=== PATIENT | female | born 1990 | race American Indian/Alaskan Native ===

== ENCOUNTER 2017-05-30 15:59 | Inpatient (IN) | payer OTHER ==
[2017-05-30] MEDS ORDERED: XYLOCAINE 2% INFILTRATI ONE (16:11)
[2017-05-30] MEDS ORDERED: MINERAL OIL PO PRN (16:11)
[2017-05-30] MEDS ORDERED: BRETHINE SUB-Q PRN (16:11)
[2017-05-30] MEDS ORDERED: ePHEDrine SULFATE IV PRN (16:11)
[2017-05-30] MEDS ORDERED: POLYCILLIN/NS 2 GM/100 ML 2 GM/100 ML BAG IV ONE (16:11)
[2017-05-30] MEDS ORDERED: SUBLIMAZE IV PRN (16:11)
[2017-05-30] MEDS ORDERED: ZOFRAN IV PRN (16:11)
--- NOTE | 2017-05-30 16:11 | History and Physical Report ---
History of Present Illness Date of examination: 05/30/17 (sent from OB office 5cm; GBS+) History of present illness: EDC Confirmation: 05/28/2017 Gestational Age: 31 2/7 weeks Past History : 4 Term Births: 3 Premature Births: 0 Living Children: 3 Para: 3 Mult. Births: 0 Prev : 0 Prev. attempt? 0 Aborta: 0 Elect. Ab: 0 Spont. Ab: 0 Ectopics: 0 # 1 Delivery date: 12/23/2010 Weeks Gestation: 38 labor: no Delivery type: Hours of labor: 10 Delivery location: [place] Sex: Male weight: 8-7 Name: Deshaun # 2 Delivery date: 09/28/2012 Weeks Gestation: 39 labor: no Delivery type: Hours of labor: 6 Anesthesia type: epidural Delivery location: [place] Infant Sex: Male weight: 7-2 Name: Maximiliano # 3 Delivery date: 12/29/2015 Weeks Gestation: 38 Delivery type: Vaginal Hours of labor: <4 Anesthesia type: none Delivery location: [facility] Sex: male weight: 6.63 Comments: limited PNC precipitous delivery Past Medical History: Reviewed history from 11/02/2015 and no changes required: Negative Past Medical History Past Surgical History: Reviewed history from 11/02/2015 and no changes required: Negative Past Surgical History General Comments - FH: Patient is adopted Social History: unemployed Patient is single Risk Factors: Smoked Tobacco Use: Never smoker Drug use: no HIV high-risk behavior: low risk Alcohol use: no Dietary Counseling: pn yes Past Medical History Abnormal PAP: negative Uterine Anomaly: negative Family Hx: Patient is adopted Social Hx: unemployed Patient is single Infection History Hx of STD: Trich HIV Risk Eval: low risk Hepatitis B Risk Eval: low risk Personal hx. of genital herpes: no Partner hx. of genital herpes: no Genetic History Congenital Heart Defect: Mom: no Dad: no Joshua Disease: Mom: no Dad: no Thalassemia Mom: no Dad: no Neural Tube Defect Mom: no Dad: no Down's Syndrome Mom: no Dad: no Malik-Sachs Mom: no Dad: no Sickle Cell Disease/Trait Mom: no Dad: no Hemophilia Mom: no Dad: no Muscular Dystrophy Mom: no Dad: no Cystic Fibrosis Mom: no Dad: no [place] Chorea Mom: no Dad: no Mental Retardation Mom: no Dad: no Fragile X Mom: no Dad: no Other Genetic/Chromosomal Disorder Mom: no Dad: no Child w/other defect Mom: no Dad: no Enviromental Exposures Xray Exposure: no Medication, drug, or alcohol use since LMP: no Chemical/Other Exposure: no Exposure to Cat Liter: no Hx of Parvovirus (Fifth Disease): no Active Medications: FORMULA 27-1 MG ORAL TABS ( VIT-FE FUMARATE-FA) 1 po q day as directed Current Allergies: No known allergies Laboratory Results Date/Time Collected: 03/28/2017 Routine Urinalysis Leukocytes: negative Nitrite: negative Urobilinogen: negative Protein: negative Blood: negative Ketone: negative Bilirubin: negative Glucose: negative Urine HCG: positive Review of Systems General Complains of fatigue. Denies fever, chills, sweats, anorexia, weakness, malaise, weight loss and sleep disorder. Complains of pelvic pain. Denies vaginal discharge, incontinence, dysuria, hematuria, urinary frequency, amenorrhea, menorrhagia, abnormal vaginal bleeding, genital sores, decreased libido, painful periods, painful sex, urinary urgency, hot flashes, vaginal dryness, vaginal itching and vaginal odor. CV Denies chest pains, palpitations, syncope, dyspnea on exertion, orthopnea, PND and peripheral edema. Resp Denies cough, dyspnea at rest, excessive sputum, hemoptysis, wheezing and pleurisy. GI Denies nausea, vomiting, diarrhea, constipation, change in bowel habits, abdominal pain, melena, hematochezia, jaundice, gas/bloating, indigestion/ heartburn, dysphagia and odynophagia. Breast Complains of breast pain. Denies left breast lump, right breast lump, nipple discharge, bloody discharge from nipple, abnormal mammogram and breast enlargement. Psych Denies depression, anxiety, irritability and mood swings. PHYSICAL EXAM HEENT: normocephalic, no lesions or deformities Neck/Thyroid: supple, thyroid normal Skin no significant abnormal lesions or rashes Chest: respiratory effort normal, clear to auscultation Breasts: skin/areolae normal, no masses, no nipple discharge, no erythema/warmth /tenderness, and axillae normal. 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 Cervix: normal appearance, no lesions. Uterus: enlarged uterus 30-32 weeks in size Adnexae: Unable to palpate due to uterine size Rectovaginal: exam defered Past History - Obstetrical History Expected Date of Delivery: 05/28/17 Actual Gestation: 40 Week(s) 2 Day(s) : 4 (HX of precipitous delivery) Para: 3 Hx # Term Pregnancies: 3 Number of Living Children: 3 Medications and Allergies Allergies Allergy/AdvReac Type Severity Reaction Status Date / Time No Known Allergies Allergy Verified 12/29/15 03:54 Home Medications Medication Instructions Recorded Confirmed Last Taken Type Lidocain2.5%/Prilocai2.5% [Emla] 5 gm TP ONCE PRN #1 tube 12/30/15 Unknown Rx - Physical Exam Breasts: Positive: deferred Cardiovascular: Regular rate, Normal S1, Normal S2 Lungs: Positive: Normal air movement Abdomen: Positive: normal appearance, soft, normal bowel sounds. Negative: distention, tenderness Genitourinary (Female): Positive: normal external genitalia Vulva: both: normal Vagina: Positive: normal moisture. Negative: discharge Cervix: Negative: lesion, discharge Uterus: Positive: normal size, normal contour Adnexa: both: normal Anus/Rectum: Positive: normal perianal skin, heme negative. Negative: rectal mass, hemorrhoids Extremities: Positive: normal Deep Tendon Reflex Grade: Normal +2 - Obstetrical FHR: category 1 Uterine Contraction Monitor Mode: External Cervical Dilatation: 5 (in OB office) Cervical Effacement Percentage: 90 (bloody show) station: -1 Results All other labs normal. Strep Gp B LIZZ [A] Positive HBsAg Screen Negative Negative *1 Rubella Antibodies, IgG 1.40 index Immune >0.99 *2 Non-immune <0.90 Equivocal 0.90 - 0.99 Immune >0.99 ABO Grouping B *3 Rh Factor Positive *4 Please note: Prior records for this patient's ABO / Rh type are not available for additional verification. Antibody Screen Negative Negative *5 RPR Non Reactive Non Reactive *6 WBC 4.7 x10E3/uL 3.4-10.8 *7 RBC [L] 3.38 x10E6/uL 3.77-5.28 *8 Hemoglobin [L] 8.8 g/dL 11.1-15.9 *9 Hematocrit [L] 28.0 % 34.0-46.6 *10 MCV 83 fL 79-97 *11 MCH [L] 26.0 pg 26.6-33.0 *12 MCHC [L] 31.4 g/dL 31.5-35.7 *13 RDW 13.2 % 12.3-15.4 *14 Platelets 160 x10E3/uL 150-379 *15 Neutrophils 65 % *16 Lymphs 30 % *17 Monocytes 4 % *18 Eos 1 % *19 Basos 0 % *20 ! Immature Cells <No Reported Value> *21 Neutrophils (Absolute) 3.1 x10E3/uL 1.4-7.0 *22 Lymphs (Absolute) 1.4 x10E3/uL 0.7-3.1 *23 Monocytes(Absolute) 0.2 x10E3/uL 0.1-0.9 *24 Eos (Absolute) 0.1 x10E3/uL 0.0-0.4 *25 Baso (Absolute) 0.0 x10E3/uL 0.0-0.2 *26 ! Immature Granulocytes 0 % *27 ! Immature Grans (Abs) 0.0 x10E3/uL 0.0-0.1 *28 ! NRBC <No Reported Value> *29 Hematology Comments: <No Reported Value> *30 Tests: (2) Cystic Fibrosis Profile (398520) ! CF, Screen Comment: *31 RESULTS: Negative for 32 mutations analyzed Tests: (3) HB Solu + Rflx Fra (137393) Hemoglobin (Hgb) Solubility Negative Negative *33 Tests: (4) Panel 087913 (320436) HIV Screen 4th Generation wRfx Non Reactive Non Reactive *34 Tests: (5) Gest. Diabetes 1-Hr Screen (470116) ! Gestational Diabetes Screen 120 mg/dL 65-139 *35 According to ADA, a glucose threshold of >139 mg/dL after 50-gram load identifies approximately 80% of women with gestational diabetes mellitus, while the sensitivity is further increased to approximately 90% by a threshold of >129 mg/dL. Tests: (6) HCV Ab w/Rflx to Verification (928261) ! HCV Ab 0.1 s/co ratio 0.0-0.9 *36 Tests: (7) Comment: (275889) ! Comment: SPRCS *37 Non reactive HCV antibody screen is consistent with no HCV infection, unless recent infection is suspected or other evidence exists to indicate HCV infection. Tests: (8) Urine Culture, Routine (382984) Urine Culture, Routine [A] Final report *38 Tests: (9) Result ([id number]) ! Result 1 [A] Escherichia coli *39 Greater than 100,000 colony forming units per mL Assessment and Plan 27yo @ 40 weeks sent from office in labor SVE in office 5,90,-1 per MD. Pt instructed to go to L&D. Charge Nurse made aware of direct admission. Pt is GBS+ . She has a hx of precipitous deliveries. All orders in EMR
[2017-05-30 16:50] LABS: Hemoglobin 8.4 gm/dl (10.1-14.3); Mean Corpuscular HGB Conc 32 % (30-34); Mean Corpuscular Volume 74 fl (79-97); Platelet Count 160 K/mm3 (140-440); Red Blood Count 3.53 M/mm3 (3.65-5.03); Red Cell Distribution Width 15.1 % (13.2-15.2); White Blood Count 6.4 K/mm3 (4.5-11.0)
[2017-05-30 16:52] LABS: Mean Corpuscular Hemoglobin 24 pg (28-32)
[2017-05-30] MEDS ORDERED: LACTATED RINGERS 1,000 ML IV SCH (17:00)
[2017-05-30] MEDS ORDERED: PITOCin/NS 30 UNIT/500ML 30 UNITS/500 ML BAG IV SCH (17:00)
--- NOTE | 2017-05-30 17:46 | Progress Note ---
Assessment and Plan Pt tolerating labor well AROM clear fluid unable to place ISE Will give pain med and try again. P: start pitocin if unchged Subjective - Subjective Date of service: 05/30/17 (pt declines epidural at this time) Interval history: EDC Confirmation: 05/28/2017 Gestational Age: 31 2/7 weeks Past History : 4 Term Births: 3 Premature Births: 0 Living Children: 3 Para: 3 Mult. Births: 0 Prev : 0 Prev. attempt? 0 Aborta: 0 Elect. Ab: 0 Spont. Ab: 0 Ectopics: 0 # 1 Delivery date: 12/23/2010 Weeks Gestation: 38 labor: no Delivery type: Hours of labor: 10 Delivery location: [place] Sex: Male weight: 8-7 Name: Deshaun # 2 Delivery date: 09/28/2012 Weeks Gestation: 39 labor: no Delivery type: Hours of labor: 6 Anesthesia type: epidural Delivery location: [place] Sex: Male weight: 7-2 Name: Maximiliano # 3 Delivery date: 12/29/2015 Weeks Gestation: 38 Delivery type: Vaginal Hours of labor: <4 Anesthesia type: none Delivery location: [facility] Sex: male weight: 6.63 Comments: limited PNC precipitous delivery Past Medical History: Reviewed history from 11/02/2015 and no changes required: Negative Past Medical History Past Surgical History: Reviewed history from 11/02/2015 and no changes required: Negative Past Surgical History General Comments - FH: Patient is adopted Social History: unemployed Patient is single Risk Factors: Smoked Tobacco Use: Never smoker Drug use: no HIV high-risk behavior: low risk Alcohol use: no Dietary Counseling: pn yes Past Medical History Abnormal PAP: negative Uterine Anomaly: negative Family Hx: Patient is adopted Social Hx: unemployed Patient is single Infection History Hx of STD: Trich HIV Risk Eval: low risk Hepatitis B Risk Eval: low risk Personal hx. of genital herpes: no Partner hx. of genital herpes: no Genetic History Congenital Heart Defect: Mom: no Dad: no Joshua Disease: Mom: no Dad: no Thalassemia Mom: no Dad: no Neural Tube Defect Mom: no Dad: no Down's Syndrome Mom: no Dad: no Malik-Sachs Mom: no Dad: no Sickle Cell Disease/Trait Mom: no Dad: no Hemophilia Mom: no Dad: no Muscular Dystrophy Mom: no Dad: no Cystic Fibrosis Mom: no Dad: no [place] Chorea Mom: no Dad: no Mental Retardation Mom: no Dad: no Fragile X Mom: no Dad: no Other Genetic/Chromosomal Disorder Mom: no Dad: no Child w/other defect Mom: no Dad: no Enviromental Exposures Xray Exposure: no Medication, drug, or alcohol use since LMP: no Chemical/Other Exposure: no Exposure to Cat Liter: no Hx of Parvovirus (Fifth Disease): no Active Medications: FORMULA 27-1 MG ORAL TABS ( VIT-FE FUMARATE-FA) 1 po q day as directed Current Allergies: No known allergies Laboratory Results Date/Time Collected: 03/28/2017 Routine Urinalysis Leukocytes: negative Nitrite: negative Urobilinogen: negative Protein: negative Blood: negative Ketone: negative Bilirubin: negative Glucose: negative Urine HCG: positive Review of Systems General Complains of fatigue. Denies fever, chills, sweats, anorexia, weakness, malaise, weight loss and sleep disorder. Complains of pelvic pain. Denies vaginal discharge, incontinence, dysuria, hematuria, urinary frequency, amenorrhea, menorrhagia, abnormal vaginal bleeding, genital sores, decreased libido, painful periods, painful sex, urinary urgency, hot flashes, vaginal dryness, vaginal itching and vaginal odor. CV Denies chest pains, palpitations, syncope, dyspnea on exertion, orthopnea, PND and peripheral edema. Resp Denies cough, dyspnea at rest, excessive sputum, hemoptysis, wheezing and pleurisy. GI Denies nausea, vomiting, diarrhea, constipation, change in bowel habits, abdominal pain, melena, hematochezia, jaundice, gas/bloating, indigestion/ heartburn, dysphagia and odynophagia. Breast Complains of breast pain. Denies left breast lump, right breast lump, nipple discharge, bloody discharge from nipple, abnormal mammogram and breast enlargement. Psych Denies depression, anxiety, irritability and mood swings. PHYSICAL EXAM HEENT: normocephalic, no lesions or deformities Neck/Thyroid: supple, thyroid normal Skin no significant abnormal lesions or rashes Chest: respiratory effort normal, clear to auscultation Breasts: skin/areolae normal, no masses, no nipple discharge, no erythema/warmth /tenderness, and axillae normal. 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 Cervix: normal appearance, no lesions. Uterus: enlarged uterus 30-32 weeks in size Adnexae: Unable to palpate due to uterine size Rectovaginal: exam defered Patient reports: movement normal Objective - Vital Signs Vital Signs: Vital Signs - 12hr 05/30/17 05/30/17 17:32 17:36 Temperature 97.6 F Pulse Rate 96 H 96 H Respiratory 14 Rate Blood Pressure 116/76 Blood Pressure 116/76 [Right] - Exam Breasts: deferred Cardiovascular: Regular rate Lungs: Normal air movement Abdomen: Present: normal appearance, soft. Absent: distention, tenderness Uterus: Present: normal FHR: auscultation normal, category 1 Uterine Contraction Monitor Mode: External Cervical Dilatation: 5 (AROM clear fluid) Cervical Effacement Percentage: 90 station: -2 Uterine Contraction Pattern: Irregular Uterine Tone Measurement Phase: Resting Uterine Contraction Intensity: Mild Extremities: normal Deep Tendon Reflex Grade: Normal +2 - Labs Labs: Abnormal Labs 05/30/17 16:26 RBC 3.53 L Hgb 8.4 L Hct 26.0 L MCV 74 L MCH 24 L Laboratory Results - last 24 hr 05/30/17 05/30/17 16:26 16:26 WBC 6.4 RBC 3.53 L Hgb 8.4 L Hct 26.0 L MCV 74 L MCH 24 L MCHC 32 RDW 15.1 Plt Count 160 Blood Type B POSITIVE Antibody Screen Negative
[2017-05-30] MEDS ORDERED: CYTOTEC ONE (19:34)
[2017-05-30] MEDS: PITOCin/NS 20 UNIT/1000ML DRIP 20 UNITS/1,000 ML BAG IV SCH ×2 (19:45→20:50)
[2017-05-30] MEDS ORDERED: MILK OF MAGNESIA PO PRN (19:48)
[2017-05-30] MEDS ORDERED: PHENERGAN PO PRN (19:48)
[2017-05-30] MEDS ORDERED: TYLENOL PO PRN (19:48)
[2017-05-30] MEDS ORDERED: TUCKS PAD TP PRN (19:48)
[2017-05-30] MEDS ORDERED: BENADRYL PO PRN (19:48)
[2017-05-30] MEDS ORDERED: LANSINOH TP PRN (19:48)
[2017-05-30] MEDS ORDERED: METHERGINE IM ONE ×2 (19:48→19:53)
[2017-05-30] MEDS ORDERED: DULCOLAX PR PRN (19:48)
[2017-05-30] MEDS ORDERED: STADOL ONE (19:56)
[2017-05-30] MEDS ORDERED: CYTOTEC PR ONE (20:00)
[2017-05-30] MEDS ORDERED: MOTRIN PO SCH (20:00)
[2017-05-30] MEDS ORDERED: SODIUM CHLORIDE FLUSH SYRINGE 10 ML IV PRN (20:00)
[2017-05-30] MEDS ORDERED: STADOL IV ONE (20:08)
[2017-05-30] MEDS ORDERED: POLYCILLIN/NS 1 GM/50 ML 1 GM/50 ML BAG IV SCH (20:13)
--- NOTE | 2017-05-30 20:22 | Procedure Note ---
OB Delivery Note - Delivery Date of Delivery: 05/30/17 Acute Care Occupational Therapist: FARIDA VASQUEZ (Marya Marks) Estimated blood loss: other (800cc) - Vaginal Delivery presentation: vertex Delivery position: OA Intrapartum events: hemorrhage Delivery induction: none Delivery augmentation: pitocin Delivery monitor: external uterine, internal FHT Route of delivery: Delivery placenta: spontaneous Delivery cord: 3 umbilical vessels Episiotomy: none Delivery laceration: none Anesthesia: intravenous Delivery comments: Called to room by pt c/o strong urge to push. SVE C,C,0 Pt request to deliver in knee chest Repositioned on bed. . Head del with mom in knee chest Turned to semifowlers to deliver shoulders and remainder of NB. Placed on mom's abdomen. Cord clamped and cut Baby placed in warmer. Placenta and membrane del complete and intact, 3 vessel cord. 8/9, EBL 300, wgt 8-8. Pt c/o feeling light headed. Lower uterine segment boggy several large clots expressed. Cytotec 800mg MT placed. Pit given IM and IV. After only a few minutes noted heavy bleeding again. This exam revealed approx 500cc of large clots removed from the lower uterine segment. Methergine IM given. [place] cath placed. Pt given Stadol 2mg IV for pain. EBL for delivery now 800cc. Pt made aware and her SO of possible need for blood transfusion. Pt agrees to this if needed. H&H ordered stat and for MN and a CBC for noon tomorrow made aware of PP hemorrhage. Now 1 hour post delivery FF @ umb Lochia scant Pt resting, drowsy from medication. ( delivery time 1925 Note completed @ 2039) - Infant A at 1 minute: 8 at 5 minutes: 9 Infant Gender: Male (wgt 8-8)
[2017-05-30 20:56] LABS: Hematocrit 23.1 % (30.3-42.9); Hemoglobin 7.5 gm/dl (10.1-14.3)
[2017-05-30] MEDS: NORCO 5/325 PO PRN (22:02)
[2017-05-30] MEDS: MOTRIN PO SCH (22:02)
[2017-05-30] MEDS: COLACE PO SCH (22:02)
[2017-05-30] MEDS: FEOSOL PO SCH (22:02)
[2017-05-30] MEDS: METHERGINE PO SCH (23:50)
[2017-05-31 02:14] LABS: Hematocrit 22.4 % (30.3-42.9); Hemoglobin 7.4 gm/dl (10.1-14.3)
[2017-05-31] MEDS: MOTRIN PO SCH ×3 (06:14→20:34)
[2017-05-31] MEDS: NORCO 5/325 PO PRN ×2 (06:15→18:18)
--- NOTE | 2017-05-31 08:24 | Progress Note ---
Assessment and Plan patient doing well this am, no complaints. Lochia scant, fundus firm. montaño removed recently and will ambulate to bathroom. discussed s/s anemia, repeat cbc ordered for noon, discussed possible need for blood transfusion. Patient is accepting of transfusion if necessary. VSSAF. Will continue to monitor. continue pathway. - Patient Problems (1) hemorrhage Current Visit: Yes Status: Acute Qualifiers: hemorrhage type: other immediate Qualified Code(s): O72.1 - Other immediate hemorrhage (2) Spontaneous vaginal delivery Current Visit: Yes Status: Acute Subjective - Subjective Date of service: 05/31/17 Principal diagnosis: day #1 s/p w/ PPH Patient reports: appetite normal, voiding normally, pain well controlled, ambulating normally, no dizzy ambulation, no nauseated : doing well, nursing well Objective - Vital Signs Latest vital signs: Vital Signs Temp Pulse Resp BP BP 05/31/17 04:00 98.6 F 66 16 111/77 05/31/17 00:15 98.6 F 69 16 121/77 05/30/17 21:30 99.3 F 71 16 110/69 05/30/17 21:19 92 H 106/71 05/30/17 21:04 85 113/72 05/30/17 20:49 82 110/69 05/30/17 20:34 77 104/66 05/30/17 20:33 82 115/66 05/30/17 20:19 87 111/63 05/30/17 20:10 90 116/63 05/30/17 20:04 100 H 121/75 05/30/17 20:00 98 H 123/70 05/30/17 19:57 14 05/30/17 19:49 90 119/56 05/30/17 19:34 87 125/64 05/30/17 19:30 84 128/75 05/30/17 18:49 105 H 119/73 05/30/17 18:34 93 H 128/82 05/30/17 18:21 95 H 119/77 05/30/17 18:14 98.2 F 05/30/17 18:05 96 H 122/71 05/30/17 17:36 96 H 116/76 05/30/17 17:32 97.6 F 96 H 14 116/76 Intake and Output 05/30/17 05/31/17 05/31/17 23:59 07:59 15:59 Intake Total 637.417 300 Output Total 900 Balance 637.417 -600 Intake: IV 137.417 PITOCin/NS 20 UNIT/1000ML 135.417 DRIP 20 units In 1,000 ml @ 125 mls/hr IV DIRECT GUERDA Rx#:[id number] PITOCin/NS 30 UNIT/500ML 2 30 units In 500 ml @ 4 mls/hr IV Q30MIN GUERDA Rx#: [id number] Oral 200 Intake, Free Water 300 300 Output: Urine 900 Indwelling Catheter 900 Other: Total, Intake Amount 200 Total, Output Amount 900 Weight 70.76 kg Estimated Blood Loss 800 - Exam Breasts: Present: normal, Cardiovascular: Present: Regular rate Lungs: Present: Clear to auscultation, Normal air movement Abdomen: Present: normal appearance, soft Vulva: both: normal Uterus: Present: normal, firm, fundal height at umbilicus Extremities: Present: normal - Labs Labs: Abnormal lab results 05/30/17 05/30/17 05/31/17 Range/Units 16:26 20:37 01:33 RBC 3.53 L (3.65-5.03) M/mm3 Hgb 8.4 L 7.5 L 7.4 L (10.1-14.3) gm/dl Hct 26.0 L 23.1 L 22.4 L (30.3-42.9) % MCV 74 L (79-97) fl MCH 24 L (28-32) pg
[2017-05-31 12:10] LABS: Hematocrit 21.9 % (30.3-42.9); Hemoglobin 7.1 gm/dl (10.1-14.3); Mean Corpuscular HGB Conc 32 % (30-34); Mean Corpuscular Volume 74 fl (79-97); Platelet Count 157 K/mm3 (140-440); Red Blood Count 2.98 M/mm3 (3.65-5.03); Red Cell Distribution Width 14.7 % (13.2-15.2); White Blood Count 8.4 K/mm3 (4.5-11.0)
[2017-05-31] MEDS: COLACE PO SCH ×2 (12:10→21:56)
[2017-05-31 12:12] LABS: Mean Corpuscular Hemoglobin 24 pg (28-32)
[2017-05-31] MEDS: METHERGINE PO SCH ×2 (12:12→18:38)
[2017-05-31] MEDS: FEOSOL PO SCH ×2 (12:12→21:56)
[2017-05-31] MEDS ORDERED: METHERGINE PO SCH (20:30)
[2017-06-01] MEDS: NORCO 5/325 PO PRN (04:04)
[2017-06-01] MEDS: MOTRIN PO SCH (04:05)
[2017-06-01] MEDS ORDERED: BOOSTRIX IM ONE (06:00)
--- NOTE | 2017-06-01 07:14 | Discharge Summary ---
Providers - Providers Date of Admission: 05/30/17 16:07 Date of discharge: 06/01/17 (Pt agrees with d/c) Attending physician: REKHA CORTEZ Primary care physician: REKHA CORTEZ Hospitalization Reason for admission: active labor Delivery: Episiotomy: none Laceration: none Other procedures: none complications: other (PPH) Discharge diagnosis: IUP at term delivered [place] baby: male Hospital course: uncomplicated vaginal delivery immediate hemorrhage 800cc blood loss H&H on admission 04/08 H&H post-delivery 03/03 Pt is Asymptomatic Pt resting in bed Breast feeding w/o difficulty. VSS FF below umb Lochia scant Perineum intact H&H 03/03 drop r/t blood loss from PPH. Pt is asymptomatic. RX po iron for d/c Doing well s/p delivery. P: d/c today with instructions RTO 1 week for circ and 4 weeks for PP visit. RX provided @ d/c Condition at discharge: Good Disposition: DC-01 TO HOME OR SELFCARE - Discharge Diagnoses (1) Spontaneous vaginal delivery Status: Acute Comment: rto 4 weeks for pp care Plan - Discharge Medications Prescriptions: Docusate Sodium [Colace] 100 mg PO BID PRN #60 capsule PRN Reason: Constipation Ferrous Sulfate [Feosol 325 MG tab] 325 mg PO BID #60 tablet Ibuprofen [Motrin 800 MG tab] 800 mg PO TID PRN #30 tablet PRN Reason: Pain - Provider Discharge Summary Activity: routine, no sex for 6 weeks, no heavy lifting 4 weeks, no strenuous exercise Diet: routine Instructions: routine Additional instructions: [] Smoking cessation referral if applicable(refer to patient education folder for contact #) [] Refer to [facility] Booklet Call your doctor immediately for: * Fever > 100.5 * Heavy vaginal bleeding ( >1 pad per hour) * Severe persistent headache * Shortness of breath * Reddened, hot, painful area to leg or breast * Drainage or odor from incision. * Keep incision clean and dry at all times and follow doctor's instructions regarding bathing/showering - Follow up plan Follow up: REKHA CORTEZ MD [Primary Care Provider] - 7 Days (Congratulations! Please call [phone] to schedule your visit in 4 weeks and your son's circumcision in 1 week. Bring the EMLA cream with you to his visit. Take medications as prescribed. Call with concerns.)
[2017-06-01 15:40] VITALS: BP 98/59
== END 2017-06-01 20:43 | disposition home or self-care (01) | DRG 774 ==
LOC: TRG 15:59 → LD 16:07 → OB 21:22
PROVIDERS: ADMIT Obstetrics & Gynecology; ATTEND Obstetrics & Gynecology
PROC: 10E0XZZ Delivery of Products of Conception, External Approach (ICD-10-PCS; principal; 2017-05-30)
PROC: 10907ZC Drainage of Amniotic Fluid, Therapeutic from Products of Conception, Via Natural or Artificial Opening (ICD-10-PCS; 2017-05-30)
PROC: 3E0234Z Introduction of Serum, Toxoid and Vaccine into Muscle, Percutaneous Approach (ICD-10-PCS; 2017-05-30)
DX: O99.824 Streptococcus B carrier state complicating childbirth (principal); O72.1 Other immediate postpartum hemorrhage; Z37.0 Single live birth; Z3A.40 40 weeks gestation of pregnancy; Z23 Encounter for immunization
CPT/HCPCS: 36415; 85014; 85018; 85027; 86592; 86850; 86900; 86901; 99211; A6250; G0463; J0290; J0595; J2210; J2590; J3010; J7120

== ENCOUNTER 2019-03-16 16:54 | Outpatient (CLI) | payer SELFPAY ==
--- NOTE | 2019-03-16 17:15 | Event Note ---
ED Screening Note Date of service: 03/16/19 Time: 17:11 ED Screening Note: This is a 29 y.o. F. that presents to the ER after syncopal episode today. 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 LMP 09/16/2018, A0 This initial assessment/diagnostic orders/clinical plan/treatment(s) is/are subject to change based on patients health status, clinical progression and re- assessment by fellow clinical providers in the ED. Further treatment and workup at subsequent clinical providers discretion. Patient/guardian urged not to elope from the ED as their condition may be serious if not clinically assessed and managed. Initial orders include: Labs, ekg, OB US
[2019-03-16 17:31] LABS: Basophils % (Auto) 0.3 % (0.0-1.8); Eosinophils % (Auto) 0.3 % (0.0-4.3); Hematocrit 27.8 % (30.3-42.9); Hemoglobin 9.4 gm/dl (10.1-14.3); Lymphocytes # (Auto) 1.6 K/mm3 (1.2-5.4); Lymphocytes % (Auto) 23.7 % (13.4-35.0); Mean Corpuscular HGB Conc 34 % (30-34); Mean Corpuscular Volume 85 fl (79-97); Monocytes # (Auto) 0.4 K/mm3 (0.0-0.8); Monocytes % (Auto) 5.9 % (0.0-7.3); Platelet Count 179 K/mm3 (140-440); Red Blood Count 3.27 M/mm3 (3.65-5.03); Red Cell Distribution Width 14.3 % (13.2-15.2)
[2019-03-16 17:52] LABS: Albumin 3.4 g/dL (3.9-5); BUN/Creatinine Ratio 8; Blood Urea Nitrogen 4 mg/dL (7-17); Calcium 8.7 mg/dL (8.4-10.2); Hemolysis Index 2
[2019-03-16 18:08] LABS: Alanine Aminotransferase < 5 units/L (7-56)
[2019-03-16 18:19] LABS: Bilirubin,Urine NEG (Negative); Color,Urine Yellow (Yellow)
[2019-03-16 18:20] LABS: Bacteria,Urine 1+ /HPF (Negative); Blood,Urine NEG (Negative); Mucus,Urine FEW /HPF; Protein,Urine <15 mg/dL mg/dL (Negative); Urobilinogen,Urine < 2.0 mg/dL (<2.0)
[2019-03-16] MEDS ORDERED: NACL 0.9% 1000 ML 1,000 ML IV ONE (18:24)
--- NOTE | 2019-03-16 18:51 | Emergency Department Report ---
ED General Adult HPI - General Chief complaint: Syncope Stated complaint: PASSED OUT/6MOS Time Seen by Provider: 03/16/19 17:11 Source: patient Mode of arrival: Ambulatory Limitations: No Limitations - History of Present Illness Initial comments: Patient is 29 years old female 5 para 4. Patient stated that last menstrual period was in August. Patient presented today complaining of one syncopal episode at-this afternoon. Patient stated she is back to normal. Patient denied any loss of consciousness. No chest pain or abdominal pain. And also denied any vaginal bleeding or vaginal discharge. Patient did not have any care so far. - Related Data Previous Rx's Medication Instructions Recorded Last Taken Type Lidocain2.5%/Prilocai2.5% [Emla] 5 gm TP ONCE PRN #1 tube 12/30/15 Unknown Rx Docusate Sodium [Colace] 100 mg PO BID PRN #60 capsule 06/01/17 Unknown Rx Ferrous Sulfate [Feosol 325 MG tab] 325 mg PO BID #60 tablet 06/01/17 Unknown Rx Ibuprofen [Motrin 800 MG tab] 800 mg PO TID PRN #30 tablet 06/01/17 Unknown Rx Allergies Allergy/AdvReac Type Severity Reaction Status Date / Time No Known Allergies Allergy Verified 12/29/15 03:54 ED Review of Systems ROS: Stated complaint: PASSED OUT/6MOS Other details as noted in HPI Comment: All other systems reviewed and negative Constitutional: denies: chills, fever Respiratory: denies: cough, shortness of breath Cardiovascular: denies: chest pain, palpitations, dyspnea on exertion Gastrointestinal: denies: abdominal pain, nausea, vomiting, diarrhea, constipation, hematemesis, melena, hematochezia Genitourinary: denies: urgency, dysuria, frequency, hematuria, discharge, abnormal menses, dyspareunia Neurological: denies: headache, weakness ED Past Medical Hx - Past Medical History Previous Medical History?: Yes Hx Hypertension: No Hx Congestive Heart Failure: No Hx Diabetes: No Hx Deep Vein Thrombosis: No Hx Renal Disease: No Hx Sickle Cell Disease: No Hx Seizures: No Hx Asthma: No Hx COPD: No Hx HIV: No Additional medical history: Syncope - Surgical History Past Surgical History?: No - Social History Smoking Status: Never Smoker Substance Use Type: None - Medications Home Medications: Home Medications Medication Instructions Recorded Confirmed Last Taken Type Lidocain2.5%/Prilocai2.5% [Emla] 5 gm TP ONCE PRN #1 tube 12/30/15 05/31/17 Unknown Rx Docusate Sodium [Colace] 100 mg PO BID PRN #60 capsule 06/01/17 Unknown Rx Ferrous Sulfate [Feosol 325 MG tab] 325 mg PO BID #60 tablet 06/01/17 Unknown Rx Ibuprofen [Motrin 800 MG tab] 800 mg PO TID PRN #30 tablet 06/01/17 Unknown Rx ED Physical Exam - General Limitations: No Limitations General appearance: alert, in no apparent distress - Head Head exam: Present: atraumatic, normocephalic, normal inspection - Eye Eye exam: Present: normal appearance, PERRL - ENT ENT exam: Present: normal exam, normal orophraynx, mucous membranes moist - Neck Neck exam: Present: normal inspection, full ROM. Absent: tenderness, meningis mus, lymphadenopathy, thyromegaly - Respiratory Respiratory exam: Present: normal lung sounds bilaterally - Cardiovascular Cardiovascular Exam: Present: tachycardia. Absent: systolic murmur, diastolic murmur - GI/Abdominal GI/Abdominal exam: Present: soft, normal bowel sounds, organomegaly (gravid uterus). Absent: tenderness, guarding, rebound, rigid, mass, bruit, pulsatile mass, hernia - Extremities Exam Extremities exam: Present: normal inspection, full ROM, normal capillary refill. Absent: pedal edema, calf tenderness - Back Exam Back exam: Present: normal inspection, full ROM. Absent: CVA tenderness (R), CVA tenderness (L), muscle spasm, paraspinal tenderness, vertebral tenderness - Neurological Exam Neurological exam: Present: alert, oriented X3, CN II-XII intact, normal gait, reflexes normal - Psychiatric Psychiatric exam: Present: normal mood - Skin Skin exam: Present: warm, intact, normal color ED Course Vital Signs 03/16/19 16:58 Temperature 99.2 F Pulse Rate 131 H Respiratory 20 Rate Blood Pressure 117/69 O2 Sat by Pulse 99 Oximetry ED Medical Decision Making - Lab Data Result diagrams: 03/16/19 17:19 03/16/19 17:19 - Radiology Data Radiology results: report reviewed - Medical Decision Making Patient is 29 years old female 5 para 4. Patient stated that last menstrual period was in August. Patient presented today complaining of one syncopal episode at-this afternoon. Patient stated she is back to normal. Patient denied any loss of consciousness. No chest pain or abdominal pain. And also denied any vaginal bleeding or vaginal discharge. Patient did not have any care so far. Patient did not experience any syncope in ER. Patient received 1 L of normal saline. Labs reviewed and is unremarkable. ultrasound showed a gestational age of 31 weeks and 1 day. No abnormalities noticed an ultrasound. Patient stated that she is feeling much better. Heart rate is down to 92. I discussed the patient is Dr. Wallace, she advised to send the patient to labor and delivery for monitoring. Critical care attestation.: If time is entered above; I have spent that time in minutes in the direct care of this critically ill patient, excluding procedure time. ED Disposition Clinical Impression: Syncope, Disposition: DC-01 TO HOME OR SELFCARE Is pt being admited?: No Condition: Stable Instructions: Syncope (ED) Referrals: SHANE LOTT MD [Primary Care Provider] - 3-5 Days
--- NOTE | 2019-03-16 19:32 | Ultrasound Report ---
ULTRASOUND OBSTETRIC INDICATION / CLINICAL INFORMATION: 24 weeks, syncopal episode. Clinical Gestational Age (GA): 25 weeks 6 days TECHNIQUE: Transabdominal. COMPARISON: None available. FINDINGS: There is a single intrauterine . Biparietal Diameter = 8.1 cm = 32 weeks, 5 day(s). Head Circumference = 28.9 cm = 31 weeks, 6 day(s). Abdominal Circumference = 25.6 cm = 29 weeks, 5 day(s). Femur Length = 25.6 cm = 29 weeks, 5 day(s). Average Ultrasound Age (AUA) = 31 weeks, 1 day(s). Heart Rate: 134 beats per minute. Estimated Weight in grams (if calculated): 1563 g +/- 231 g Position: cephalic. Cervix: closed. Length in cm (if measured): 3.6 Placenta: posterior, grade 2 and free of the os. Amniotic Fluid Volume: normal Amniotic Fluid Index (SHERLEY) in cm (if calculated): 14.9. Maternal Adnexa: No significant abnormality. Visualized anatomy including the stomach, kidneys, bladder, diaphragm, four-chamber heart, thre e-vessel umbilical cord, cord insertion site and spine appear within normal limits. The intracranial anatomy is poorly visualized secondary to positioning. IMPRESSION: 1. Single, living intrauterine with estimated sonographic age of 31 weeks, 1 day(s). 2. No significant sonographic abnormality. intracranial anatomy not assessed secondary to positioning Signer Name: Modesto Blevins MD Signed: 03/16/2019 7:28 PM Workstation Name: [id number]
[2019-03-16] MEDS ORDERED: LACTATED RINGERS 500 ML IV ONE (20:56)
[2019-03-16] MEDS ORDERED: LACTATED RINGERS 1,000 ML IV SCH (21:00)
[2019-03-16 21:05] VITALS: BP 111/71
== END 2019-03-16 22:09 | disposition home or self-care (01) ==
LOC: TRG 16:54 → ED 16:54 → EDSTATUS 20:20 → TRG 20:59
PROVIDERS: ATTEND Obstetrics & Gynecology
DX: O26.893 Other specified pregnancy related conditions, third trimester (principal); R55 Syncope and collapse; Z3A.34 34 weeks gestation of pregnancy
CPT/HCPCS: 36415; 59025; 76805; 80053; 81001; 84702; 85025; 86900; 86901; 93005; 93010; J7030; 96360

== ENCOUNTER 2019-05-12 08:43 | Inpatient (IN) | payer SELFPAY ==
[2019-05-12] MEDS ORDERED: OXYTOCIN 20 UNIT/1000ML DRIP 20,000 MILLIUNITS/1,000 ML BAG IV ONE (09:21)
[2019-05-12] MEDS ORDERED: LACTATED RINGERS 1,000 ML ONE (09:21)
[2019-05-12] MEDS ORDERED: AMPICILLIN/NS 2 GM/100 ML 2 GM/100 ML BAG IV ONE (09:45)
[2019-05-12] MEDS ORDERED: TERBUTALINE 1 MG/1 ML INJ IVP PRN (09:45)
[2019-05-12] MEDS ORDERED: TERBUTALINE 1 MG/1 ML INJ SUB-Q PRN (09:45)
[2019-05-12] MEDS ORDERED: MINERAL OIL 30 ML ORAL LIQD PO PRN (09:45)
[2019-05-12] MEDS ORDERED: ePHEDrine SULFATE 50 MG/1 ML INJ IV PRN (09:45)
[2019-05-12] MEDS ORDERED: LIDOCAINE (2%) 20 MG/1 ML VIAL 20 ML MDV INFILTRATI ONE (09:45)
--- NOTE | 2019-05-12 09:45 | History and Physical Report ---
History of Present Illness Date of examination: 05/12/19 Date of admission: 05/12/19 09:18 Chief complaint: Labor History of present illness: Pt is a 29yo BF EDC 05/16/19; EGA 39 3/7 weeks presents to L&D complaining of RUC's q 3-4 mins. She received limited care for this , but states course was unremarkable. Past History Past Medical History: no pertinent history Past Surgical History: no surgical history Family/Genetic History: none Social history: no significant social history, single - Obstetrical History Expected Date of Delivery: 05/16/19 Actual Gestation: 39 Week(s) 3 Day(s) : 5 Medications and Allergies Allergies Allergy/AdvReac Type Severity Reaction Status Date / Time No Known Allergies Allergy Verified 12/29/15 03:54 Home Medications Medication Instructions Recorded Confirmed Last Taken Type Lidocain2.5%/Prilocai2.5% [Emla] 5 gm TP ONCE PRN #1 tube 12/30/15 05/31/17 Unknown Rx Docusate Sodium [Colace] 100 mg PO BID PRN #60 capsule 06/01/17 Unknown Rx Ferrous Sulfate [Feosol 325 MG tab] 325 mg PO BID #60 tablet 06/01/17 Unknown Rx Ibuprofen [Motrin 800 MG tab] 800 mg PO TID PRN #30 tablet 06/01/17 Unknown Rx Review of Systems All systems: negative - Vital Signs Vital signs: Vital Signs Pulse Pulse Ox 95 H 100 05/12/19 08:56 05/12/19 08:56 Temp Pulse Resp BP Pulse Ox 96 H 137/79 100 05/12/19 09:17 05/12/19 09:17 05/12/19 09:06 - Physical Exam Breasts: Positive: deferred Cardiovascular: Regular rate Lungs: Positive: Clear to auscultation Abdomen: Positive: normal appearance Genitourinary (Female): Positive: normal external genitalia Vagina: Positive: normal moisture Uterus: Positive: enlarged Extremities: Positive: normal - Obstetrical FHR: category 1 Uterine Contraction Monitor Mode: External Cervical Dilatation: 10 Cervical Effacement Percentage: 100 station: +2 Uterine Contraction Pattern: Regular Uterine Tone Measurement Phase: Contraction Uterine Contraction Intensity: Strong/Firm Results Result Diagrams: 05/12/19 09:00 All other labs normal. Assessment and Plan - Patient Problems (1) 39 weeks gestation of Onset Date: 05/12/19 Current Visit: Yes Status: Acute Plan to address problem: A: IUP @ 39 3/7 weeks in labor Limited care Unknown GBS P: Admit to L&D for expectant vaginal delivery Obtain labs IV Ampicillin (2) Active labor Onset Date: 05/12/19 Current Visit: No Status: Acute (3) Limited care in third trimester Onset Date: 05/12/19 Current Visit: No Status: Acute
--- NOTE | 2019-05-12 09:52 | Procedure Note ---
OB Delivery Note - Delivery Date of Delivery: 05/12/19 Surgeon: DOMINIQUE VERA Estimated blood loss: 100cc - Vaginal Delivery presentation: vertex Delivery position: OA Intrapartum events: no care, precipitous labor- <3hr Delivery induction: none Delivery augmentation: rupture of membranes Delivery monitor: external FHT, external uterine Route of delivery: Delivery placenta: spontaneous Delivery cord: 3 umbilical vessels Episiotomy: none Delivery laceration: none Anesthesia: none Delivery comments: Infant delivered OA and placed on Mom's chest for [id number] bonding and delayed cord clamping. - Infant A at 1 minute: 8 at 5 minutes: 9 Infant Gender: Male (3337gms)
[2019-05-12] MEDS ORDERED: LACTATED RINGERS 1,000 ML IV SCH (10:00)
[2019-05-12] MEDS ORDERED: OXYTOCIN 20 UNIT/1000ML DRIP 20 UNITS/1,000 ML BAG IV SCH ×2 (10:00→11:00)
[2019-05-12] MEDS ORDERED: OXYTOCIN DRIP 30 UNITS/500 ML BAG IV SCH (10:00)
[2019-05-12] MEDS ORDERED: LANOLIN/ZINC/DIMETHICONE (LANSINOH) 7 GM TP PRN (10:01)
[2019-05-12] MEDS ORDERED: PROMETHAZINE 25 MG TAB PO PRN (10:01)
[2019-05-12] MEDS ORDERED: WITCH HAZEL/ GLYCERIN PAD TP PRN (10:01)
[2019-05-12] MEDS ORDERED: PROMETHAZINE 25 MG RECT SUPP PR PRN (10:01)
[2019-05-12] MEDS ORDERED: ONDANSETRON 4 MG/2 ML INJ IV PRN (10:01)
[2019-05-12] MEDS ORDERED: ACETAMINOPHEN 325 MG TAB PO PRN (10:01)
[2019-05-12] MEDS ORDERED: diphenhydrAMINE 25 MG CAP PO PRN (10:01)
[2019-05-12 10:13] LABS: Hematocrit 28.1 % (30.3-42.9); Hemoglobin 9.2 gm/dl (10.1-14.3); Mean Corpuscular HGB Conc 33 % (30-34); Mean Corpuscular Volume 79 fl (79-97); Platelet Count 156 K/mm3 (140-440); Red Blood Count 3.58 M/mm3 (3.65-5.03); Red Cell Distribution Width 14.8 % (13.2-15.2)
[2019-05-12 10:37] LABS: Hepatitis C Virus Antibody Non-Reactive (NonReactive)
[2019-05-12 10:43] LABS: Amphetamine Screen,Urine PRESUMPTIVE NEGATIVE; Benzodiazepines Screen,Urine PRESUMPTIVE NEGATIVE; Cannabinoid Screen,Urine PRESUMPTIVE NEGATIVE; Cocaine Screen,Urine PRESUMPTIVE NEGATIVE; Methadone Screen,Urine PRESUMPTIVE NEGATIVE; Opiate Screen,Urine PRESUMPTIVE NEGATIVE
[2019-05-12] MEDS: HYDROcodone/ACETAMINOPHEN 5-325 MG TAB PO PRN ×2 (10:44→16:50)
[2019-05-12] MEDS: IBUPROFEN 600 MG TAB PO SCH ×3 (10:45→23:49)
[2019-05-12] MEDS ORDERED: AMPICILLIN/NS 1 GM/50 ML 1 GM/50 ML BAG IV SCH (13:47)
[2019-05-12] MEDS: FERROUS SULFATE 325 MG TAB PO SCH (21:53)
[2019-05-12] MEDS ORDERED: MAGNESIUM HYDROXIDE (MOM) ORAL LIQD UDC PO PRN (22:00)
[2019-05-12 22:55] LABS: Hematocrit 26.2 % (30.3-42.9); Hemoglobin 8.4 gm/dl (10.1-14.3)
[2019-05-13] MEDS ORDERED: TETANUS,DIPH,PERTUSS(ACELL) VACCINE 0.5 ML SYRINGE IM ONE (06:00)
--- NOTE | 2019-05-13 09:19 | Progress Note ---
Assessment and Plan - Patient Problems (1) 39 weeks gestation of Onset Date: 05/12/19 Current Visit: Yes Status: Resolved (2) Active labor Onset Date: 05/12/19 Current Visit: No Status: Resolved (3) Limited care in third trimester Onset Date: 05/12/19 Current Visit: No Status: Resolved (4) (normal spontaneous vaginal delivery) Onset Date: 05/13/19 Current Visit: Yes Status: Resolved Plan to address problem: A: S/P - PPD #1 Doing well Asymptomatic anemia - stable P: May go home tomorrow. Subjective - Subjective Date of service: 05/13/19 Principal diagnosis: s/p - PPD #1 Interval history: Pt is feeling well without complaints. Bleeding improved. Patient reports: appetite normal, voiding normally, pain well controlled, flatus, ambulating normally, no dizzy ambulation, no nauseated : doing well, nursing well Objective - Vital Signs Latest vital signs: Vital Signs Temp Pulse Resp BP BP Pulse Ox 05/12/19 23:36 98.2 F 64 20 120/61 100 05/12/19 19:42 98.2 F 71 20 124/73 100 05/12/19 11:30 98.8 F 80 18 133/83 100 05/12/19 10:41 97 H 137/80 05/12/19 10:35 87 131/65 05/12/19 10:30 78 138/66 05/12/19 10:25 83 152/90 05/12/19 10:20 78 139/77 05/12/19 10:16 89 142/82 05/12/19 10:10 100 H 152/96 05/12/19 10:05 79 141/80 05/12/19 10:00 80 142/82 05/12/19 09:55 85 143/74 05/12/19 09:51 88 151/89 Intake and Output 05/12/19 05/13/19 05/13/19 22:59 06:59 14:59 Intake Total 240 240 Output Total 400 Balance -160 240 Intake: Oral 240 240 Output: Urine 400 Void 400 Other: Total, Intake Amount 240 240 Total, Output Amount 400 # Voids Void 1 1 - Exam Breasts: Present: deferred Abdomen: Present: normal appearance, soft Uterus: Present: normal, firm, fundal height below umbilicus Extremities: Present: normal - Labs Labs: Abnormal lab results 05/12/19 05/12/19 Range/Units 09:00 22:32 RBC 3.58 L (3.65-5.03) M/mm3 Hgb 9.2 L 8.4 L (10.1-14.3) gm/dl Hct 28.1 L 26.2 L (30.3-42.9) % MCH 26 L (28-32) pg Laboratory Tests 05/12/19 05/12/19 05/12/19 09:00 09:00 09:00 WBC 5.9 RBC 3.58 L Hgb 9.2 L Hct 28.1 L MCV 79 MCH 26 L MCHC 33 RDW 14.8 Plt Count 156 Urine Opiates Screen Presumptive negative Urine Methadone Screen Presumptive negative Ur Barbiturates Screen Presumptive negative Ur Phencyclidine Scrn Presumptive negative Ur Amphetamines Screen Presumptive negative U Benzodiazepines Scrn Presumptive negative Urine Cocaine Screen Presumptive negative U Marijuana (THC) Screen Presumptive negative Drugs of Abuse Note Disclamer RPR Hep Bs Antigen Hepatitis C Antibody Non-reactive HIV 1&2 Antibody Rapid HIV P24 Antigen Rubella IgG Antibody Immune Blood Type Antibody Screen 05/12/19 05/12/19 05/12/19 09:00 09:00 09:00 WBC RBC Hgb Hct MCV MCH MCHC RDW Plt Count Urine Opiates Screen Urine Methadone Screen Ur Barbiturates Screen Ur Phencyclidine Scrn Ur Amphetamines Screen U Benzodiazepines Scrn Urine Cocaine Screen U Marijuana (THC) Screen Drugs of Abuse Note RPR Nonreactive Hep Bs Antigen Non-reactive Hepatitis C Antibody HIV 1&2 Antibody Rapid HIV P24 Antigen Rubella IgG Antibody Blood Type B POSITIVE Antibody Screen Negative 05/12/19 05/12/19 09:00 22:32 WBC RBC Hgb 8.4 L Hct 26.2 L MCV MCH MCHC RDW Plt Count Urine Opiates Screen Urine Methadone Screen Ur Barbiturates Screen Ur Phencyclidine Scrn Ur Amphetamines Screen U Benzodiazepines Scrn Urine Cocaine Screen U Marijuana (THC) Screen Drugs of Abuse Note RPR Hep Bs Antigen Hepatitis C Antibody HIV 1&2 Antibody Rapid Non react HIV P24 Antigen Non react Rubella IgG Antibody Blood Type Antibody Screen
[2019-05-13] MEDS ORDERED: MEASLES, MUMPS & RUBELLA 12,500 UNIT/0.5 ML VACCINE SUB-Q ONE (10:01)
[2019-05-13] MEDS: FERROUS SULFATE 325 MG TAB PO SCH ×2 (10:36→23:53)
[2019-05-13] MEDS: PRENATAL VIT27-FE FUMARATE-FOLIC ACID VIT TAB PO SCH (10:36)
[2019-05-13] MEDS: IBUPROFEN 600 MG TAB PO SCH ×3 (10:37→23:54)
[2019-05-14] MEDS: IBUPROFEN 600 MG TAB PO SCH ×2 (05:30→14:14)
[2019-05-14] MEDS: PRENATAL VIT27-FE FUMARATE-FOLIC ACID VIT TAB PO SCH (08:42)
[2019-05-14] MEDS: FERROUS SULFATE 325 MG TAB PO SCH (08:43)
--- NOTE | 2019-05-14 14:22 | Discharge Summary ---
Providers - Providers Date of Admission: 05/12/19 09:18 Date of discharge: 05/14/19 Attending physician: DOMINIQUE VERA Primary care physician: JAY HYATT MD Hospitalization Reason for admission: active labor, IUP at term Delivery: Episiotomy: none Laceration: none Other procedures: none complications: none Discharge diagnosis: IUP at term delivered [place] baby: male Hospital course: Unremarkable. Condition at discharge: Good Disposition: DC-01 TO HOME OR SELFCARE - Discharge Diagnoses (1) 39 weeks gestation of Status: Resolved (2) Active labor Status: Resolved (3) Limited care in third trimester Status: Resolved (4) (normal spontaneous vaginal delivery) Status: Resolved Plan - Discharge Medications Prescriptions: Ferrous Sulfate [Feosol 325 MG tab] 325 mg PO BID #60 tablet Ibuprofen [Motrin 600 MG tab] 600 mg PO Q6H #30 tablet Vit-Fe Fumar-FA [ Vitamin] 1 each PO QDAY #30 tablet - Provider Discharge Summary Activity: routine, no sex for 6 weeks, no heavy lifting 4 weeks, no strenuous exercise Diet: routine Instructions: routine Additional instructions: [] Smoking cessation referral if applicable(refer to patient education folder for contact #) [] Refer to [facility] Booklet Call your doctor immediately for: * Fever > 100.5 * Heavy vaginal bleeding ( >1 pad per hour) * Severe persistent headache * Shortness of breath * Reddened, hot, painful area to leg or breast * Drainage or odor from incision. * Keep incision clean and dry at all times and follow doctor's instructions regarding bathing/showering - Follow up plan Follow up: JAY HYATT MD [Primary Care Provider] - 7 Days DOMINIQUE VERA MD [Staff Physician] - 6 Weeks Forms: [facility] Discharge Summary
[2019-05-14 17:02] VITALS: BP 116/64
== END 2019-05-14 18:34 | disposition home or self-care (01) | DRG 807 ==
LOC: TRG 08:43 → LD 09:18 → OB 11:42
PROVIDERS: ADMIT Obstetrics & Gynecology; ATTEND Obstetrics & Gynecology
PROC: 10E0XZZ Delivery of Products of Conception, External Approach (ICD-10-PCS; principal; 2019-05-12)
PROC: 3E0234Z Introduction of Serum, Toxoid and Vaccine into Muscle, Percutaneous Approach (ICD-10-PCS; 2019-05-13)
DX: O62.3 Precipitate labor (principal); Z37.0 Single live birth; O99.02 Anemia complicating childbirth; D64.9 Anemia, unspecified; Z79.899 Other long term (current) drug therapy; Z3A.39 39 weeks gestation of pregnancy; Z23 Encounter for immunization
CPT/HCPCS: 36415; 80307; 85014; 85018; 85027; 86592; 86706; 86762; 86803; 86850; 86900; 86901; 87806; G0378; J2590; J7120

== ENCOUNTER 2019-06-01 11:01 | Emergency (ER) | payer SELFPAY ==
[2019-06-01 11:17] VITALS: BP 159/99
--- NOTE | 2019-06-01 12:19 | Emergency Department Report ---
- General Chief complaint: Skin/Abscess/Foreign Body Stated complaint: PERIANAL ABSCESS Time Seen by Provider: 06/01/19 12:13 Source: patient Mode of arrival: Ambulatory Limitations: No Limitations - History of Present Illness Initial comments: Patient reports perianal abscess that started two days ago. She is s/p three weeks vaginal delivery without any complications. G5,P5. complaint: abscess/boil, other (elevated blood pressure) Onset/Timin -: days(s) Tetanus Up to Date: unsure Location: buttocks (left) Severity: moderate, severe Severity scale (0 -10): 7 Quality: aching Consistency: constant Improves with: none Worsens with: rest Context: other (unknown) Associated symptoms: denies other symptoms Treatments Prior to Arrival: none - Related Data Previous Rx's Medication Instructions Recorded Last Taken Type Lidocain2.5%/Prilocai2.5% [Emla] 5 gm TP ONCE PRN #1 tube 12/30/15 Unknown Rx Docusate Sodium [Colace] 100 mg PO BID PRN #60 capsule 06/01/17 Unknown Rx Ferrous Sulfate [Feosol 325 MG tab] 325 mg PO BID #60 tablet 06/01/17 Unknown Rx Ibuprofen [Motrin 800 MG tab] 800 mg PO TID PRN #30 tablet 06/01/17 Unknown Rx Ferrous Sulfate [Feosol 325 MG tab] 325 mg PO BID #60 tablet 05/14/19 Unknown Rx Ibuprofen [Motrin 600 MG tab] 600 mg PO Q6H #30 tablet 05/14/19 Unknown Rx Vit-Fe Fumar-FA [ 1 each PO QDAY #30 tablet 05/14/19 Unknown Rx Vitamin] Clindamycin [Clindamycin CAP] 300 mg PO Q8H #30 cap 06/01/19 Unknown Rx Allergies Allergy/AdvReac Type Severity Reaction Status Date / Time No Known Allergies Allergy Verified 06/01/19 11:10 Abscess Boil HPI - HPI Chief Complaint: Skin/Abscess/Foreign Body Stated Complaint: PERIANAL ABSCESS Home Medications: Previous Rx's Medication Instructions Recorded Last Taken Type Lidocain2.5%/Prilocai2.5% [Emla] 5 gm TP ONCE PRN #1 tube 12/30/15 Unknown Rx Docusate Sodium [Colace] 100 mg PO BID PRN #60 capsule 06/01/17 Unknown Rx Ferrous Sulfate [Feosol 325 MG tab] 325 mg PO BID #60 tablet 06/01/17 Unknown Rx Ibuprofen [Motrin 800 MG tab] 800 mg PO TID PRN #30 tablet 06/01/17 Unknown Rx Ferrous Sulfate [Feosol 325 MG tab] 325 mg PO BID #60 tablet 05/14/19 Unknown Rx Ibuprofen [Motrin 600 MG tab] 600 mg PO Q6H #30 tablet 05/14/19 Unknown Rx Vit-Fe Fumar-FA [ 1 each PO QDAY #30 tablet 05/14/19 Unknown Rx Vitamin] Clindamycin [Clindamycin CAP] 300 mg PO Q8H #30 cap 06/01/19 Unknown Rx Allergies/Adverse Reactions: Allergies Allergy/AdvReac Type Severity Reaction Status Date / Time No Known Allergies Allergy Verified 06/01/19 11:10 ED Review of Systems ROS: Stated complaint: PERIANAL ABSCESS Other details as noted in HPI Constitutional: denies: chills, fever Eyes: denies: eye pain, eye discharge, vision change ENT: denies: ear pain, throat pain Respiratory: denies: cough, orthopnea, shortness of breath, SOB with exertion, SOB at rest, stridor, wheezing Cardiovascular: denies: chest pain, palpitations, dyspnea on exertion, orthopnea Endocrine: no symptoms reported Gastrointestinal: denies: abdominal pain, nausea, diarrhea Genitourinary: denies: urgency, dysuria, discharge Musculoskeletal: denies: back pain, joint swelling, arthralgia Skin: other (abscess). denies: rash, lesions, change in hair/nails, pruritus Neurological: denies: headache, weakness, paresthesias, confusion Psychiatric: denies: anxiety, depression Hematological/Lymphatic: denies: easy bleeding, easy bruising ED Past Medical Hx - Past Medical History Previous Medical History?: Yes Hx Hypertension: No Hx Congestive Heart Failure: No Hx Diabetes: No Hx Deep Vein Thrombosis: No Hx Renal Disease: No Hx Sickle Cell Disease: No Hx Seizures: No Hx Asthma: No Hx COPD: No Hx HIV: No Additional medical history: Syncope, anemia - Surgical History Past Surgical History?: No - Social History Smoking Status: Never Smoker Substance Use Type: None - Medications Home Medications: Home Medications Medication Instructions Recorded Confirmed Last Taken Type Lidocain2.5%/Prilocai2.5% [Emla] 5 gm TP ONCE PRN #1 tube 12/30/15 05/13/19 Unknown Rx Docusate Sodium [Colace] 100 mg PO BID PRN #60 capsule 06/01/17 05/13/19 Unknown Rx Ferrous Sulfate [Feosol 325 MG tab] 325 mg PO BID #60 tablet 06/01/17 05/13/19 Unknown Rx Ibuprofen [Motrin 800 MG tab] 800 mg PO TID PRN #30 tablet 06/01/17 05/13/19 Unknown Rx Ferrous Sulfate [Feosol 325 MG tab] 325 mg PO BID #60 tablet 05/14/19 Unknown Rx Ibuprofen [Motrin 600 MG tab] 600 mg PO Q6H #30 tablet 05/14/19 Unknown Rx Vit-Fe Fumar-FA [ 1 each PO QDAY #30 tablet 05/14/19 Unknown Rx Vitamin] Clindamycin [Clindamycin CAP] 300 mg PO Q8H #30 cap 06/01/19 Unknown Rx ED Physical Exam - General Limitations: No Limitations General appearance: alert, in no apparent distress - Eye Eye exam: Present: normal appearance, PERRL, EOMI - Neck Neck exam: Present: normal inspection, full ROM. Absent: tenderness, meningismus, lymphadenopathy, thyromegaly - Respiratory Respiratory exam: Present: normal lung sounds bilaterally. Absent: respiratory distress, wheezes, rales, rhonchi, stridor, chest wall tenderness, accessory muscle use, decreased breath sounds, prolonged expiratory - Cardiovascular Cardiovascular Exam: Present: regular rate, normal rhythm, normal heart sounds. Absent: systolic murmur, diastolic murmur, rubs, gallop - Rectal Rectal exam: Present: tenderness (2 cm indurated abscess with drainage left perianal). Absent: normal rectal tone, decreased rectal tone, heme (-) stool, heme (+) stool, black stool, bloody stool, fecal impaction, hemorrhoids - Extremities Exam Extremities exam: Present: normal inspection, full ROM, normal capillary refill. Absent: tenderness, pedal edema, joint swelling, calf tenderness - Back Exam Back exam: Present: normal inspection, full ROM. Absent: tenderness, CVA tenderness (R), CVA tenderness (L), muscle spasm, paraspinal tenderness, vertebral tenderness, rash noted - Neurological Exam Neurological exam: Present: alert, oriented X3, CN II-XII intact, normal gait, reflexes normal, other (no focal neuro deficits). Absent: motor sensory deficit - Psychiatric Psychiatric exam: Present: normal affect, normal mood - Skin Skin exam: Present: warm, dry, intact, normal color. Absent: rash ED Course Vital Signs 06/01/19 11:15 Temperature 98.4 F Pulse Rate 86 Respiratory 16 Rate Blood Pressure 159/99 [Left] O2 Sat by Pulse 99 Oximetry ED Medical Decision Making - Lab Data Result diagrams: 06/01/19 12:30 06/01/19 12:30 Lab Results 06/01/19 06/01/19 06/01/19 Range/Units 12:30 12:30 12:30 WBC 5.5 (4.5-11.0) K/mm3 RBC 4.31 (3.65-5.03) M/mm3 Hgb 10.7 (10.1-14.3) gm/dl Hct 33.4 (30.3-42.9) % MCV 78 L (79-97) fl MCH 25 L (28-32) pg MCHC 32 (30-34) % RDW 15.6 H (13.2-15.2) % Plt Count 259 (140-440) K/mm3 Lymph % (Auto) 37.4 H (13.4-35.0) % Terrell % (Auto) 5.9 (0.0-7.3) % Eos % (Auto) 2.2 (0.0-4.3) % Baso % (Auto) 0.6 (0.0-1.8) % Lymph # 2.1 (1.2-5.4) K/mm3 Terrell # 0.3 (0.0-0.8) K/mm3 Eos # 0.1 (0.0-0.4) K/mm3 Baso # 0.0 (0.0-0.1) K/mm3 Seg Neutrophils % 53.9 (40.0-70.0) % Seg Neutrophils # 3.0 (1.8-7.7) K/mm3 PT 12.2 (12.2-14.9) Sec. INR 0.93 (0.87-1.13) APTT 26.9 (24.2-36.6) Sec. Sodium 141 (137-145) mmol/L Potassium 3.9 (3.6-5.0) mmol/L Chloride 103.5 (98-107) mmol/L Carbon Dioxide 24 (22-30) mmol/L Anion Gap 17 mmol/L BUN 9 (7-17) mg/dL Creatinine 0.6 L (0.7-1.2) mg/dL Estimated GFR > 60 ml/min BUN/Creatinine Ratio 15 % Glucose 104 H (65-100) mg/dL Calcium 8.8 (8.4-10.2) mg/dL Total Bilirubin 0.20 (0.1-1.2) mg/dL AST 10 (5-40) units/L ALT 6 L (7-56) units/L Alkaline Phosphatase 109 (35-129) units/L Lactate Dehydrogenase 176 (91-180) units/L Total Protein 7.0 (6.3-8.2) g/dL Albumin 4.1 (3.9-5) g/dL Albumin/Globulin Ratio 1.4 % Urine Color (Yellow) Urine Turbidity (Clear) Urine pH (5.0-7.0) Ur Specific [place] (1.003-1.030) Urine Protein (Negative) mg/dL Urine Glucose (UA) (Negative) mg/dL Urine Ketones (Negative) mg/dL Urine Blood (Negative) Urine Nitrite (Negative) Urine Bilirubin (Negative) Urine Urobilinogen (<2.0) mg/dL Ur Leukocyte Esterase (Negative) Urine WBC (Auto) (0.0-6.0) /HPF Urine RBC (Auto) (0.0-6.0) /HPF U Epithel Cells (Auto) (0-13.0) /HPF Urine Mucus /HPF 06/01/19 Range/Units 13:35 WBC (4.5-11.0) K/mm3 RBC (3.65-5.03) M/mm3 Hgb (10.1-14.3) gm/dl Hct (30.3-42.9) % MCV (79-97) fl MCH (28-32) pg MCHC (30-34) % RDW (13.2-15.2) % Plt Count (140-440) K/mm3 Lymph % (Auto) (13.4-35.0) % Terrell % (Auto) (0.0-7.3) % Eos % (Auto) (0.0-4.3) % Baso % (Auto) (0.0-1.8) % Lymph # (1.2-5.4) K/mm3 Terrell # (0.0-0.8) K/mm3 Eos # (0.0-0.4) K/mm3 Baso # (0.0-0.1) K/mm3 Seg Neutrophils % (40.0-70.0) % Seg Neutrophils # (1.8-7.7) K/mm3 PT (12.2-14.9) Sec. INR (0.87-1.13) APTT (24.2-36.6) Sec. Sodium (137-145) mmol/L Potassium (3.6-5.0) mmol/L Chloride (98-107) mmol/L Carbon Dioxide (22-30) mmol/L Anion Gap mmol/L BUN (7-17) mg/dL Creatinine (0.7-1.2) mg/dL Estimated GFR ml/min BUN/Creatinine Ratio % Glucose (65-100) mg/dL Calcium (8.4-10.2) mg/dL Total Bilirubin (0.1-1.2) mg/dL AST (5-40) units/L ALT (7-56) units/L Alkaline Phosphatase (35-129) units/L Lactate Dehydrogenase (91-180) units/L Total Protein (6.3-8.2) g/dL Albumin (3.9-5) g/dL Albumin/Globulin Ratio % Urine Color Yellow (Yellow) Urine Turbidity Slightly-cloudy (Clear) Urine pH 6.0 (5.0-7.0) Ur Specific [place] 1.019 (1.003-1.030) Urine Protein <15 mg/dl (Negative) mg/dL Urine Glucose (UA) Neg (Negative) mg/dL Urine Ketones Neg (Negative) mg/dL Urine Blood Sm (Negative) Urine Nitrite Neg (Negative) Urine Bilirubin Neg (Negative) Urine Urobilinogen < 2.0 (<2.0) mg/dL Ur Leukocyte Esterase Mod (Negative) Urine WBC (Auto) 9.0 H (0.0-6.0) /HPF Urine RBC (Auto) 2.0 (0.0-6.0) /HPF U Epithel Cells (Auto) 15.0 H (0-13.0) /HPF Urine Mucus Few /HPF - Differential Diagnosis Abscess with Cellulitis, Preeclampsia, Elevated Blood Pressure Critical care attestation.: If time is entered above; I have spent that time in minutes in the direct care of this critically ill patient, excluding procedure time. ED Disposition Clinical Impression: Abscess, perianal, Elevated blood pressure reading Disposition: TO HOME OR SELFCARE Is pt being admited?: No Does the pt Need Aspirin: No Condition: Stable Instructions: Abscess (ED), Hypertension (ED) Additional Instructions: Take medication as directed. Warm bath soaks three times a day. Follow up with your OUTSOLE SPLICER regarding elevated blood pressure next week to recheck blood pressure in order to prevent target organ damage such as stroke, paralysis, kidney damages and lungs. The following lifestyle modifications can assist with managing your blood pressure: eat less salt, exercise and maintain a healthy weight, limit alcohol, do not smoke and decrease stress. Return to the emergency department if you have severe headache, vision loss, weakness in an arm or leg, confused, difficulty speaking, chest discomfort, trouble breathing, lightheaded, jaw, back, neck or stomach pain. Prescriptions: Clindamycin [Clindamycin CAP] 300 mg PO Q8H #30 cap Referrals: PRIMARY CARE [Primary Care Provider] - 3-5 Days Time of Disposition: 14:37
[2019-06-01 13:17] LABS: Basophils % (Auto) 0.6 % (0.0-1.8); Eosinophils # (Auto) 0.1 K/mm3 (0.0-0.4); Eosinophils % (Auto) 2.2 % (0.0-4.3); Hematocrit 33.4 % (30.3-42.9); Hemoglobin 10.7 gm/dl (10.1-14.3); Lymphocytes # (Auto) 2.1 K/mm3 (1.2-5.4); Lymphocytes % (Auto) 37.4 % (13.4-35.0); Mean Corpuscular HGB Conc 32 % (30-34); Mean Corpuscular Volume 78 fl (79-97); Monocytes # (Auto) 0.3 K/mm3 (0.0-0.8); Monocytes % (Auto) 5.9 % (0.0-7.3); Platelet Count 259 K/mm3 (140-440); Red Blood Count 4.31 M/mm3 (3.65-5.03); Red Cell Distribution Width 15.6 % (13.2-15.2)
[2019-06-01 13:27] LABS: Alanine Aminotransferase 6 units/L (7-56); Albumin 4.1 g/dL (3.9-5); BUN/Creatinine Ratio 15; Blood Urea Nitrogen 9 mg/dL (7-17); Calcium 8.8 mg/dL (8.4-10.2); Hemolysis Index 0
[2019-06-01 14:18] LABS: INR 0.93 (0.87-1.13)
[2019-06-01 14:19] LABS: Partial Thromboplastin Time 26.9 Sec. (24.2-36.6)
[2019-06-01 14:26] LABS: Bilirubin,Urine NEG (Negative); Blood,Urine SM (Negative); Color,Urine Yellow (Yellow); Mucus,Urine FEW /HPF; Protein,Urine <15 mg/dL mg/dL (Negative); Urobilinogen,Urine < 2.0 mg/dL (<2.0)
== END 2019-06-01 14:45 | disposition home or self-care (01) ==
LOC: ED 11:01
DX: K61.0 Anal abscess (principal); I10 Essential (primary) hypertension; Z79.899 Other long term (current) drug therapy; Z79.1 Long term (current) use of non-steroidal anti-inflammatories (NSAID)
CPT/HCPCS: 36415; 80053; 81001; 83615; 85025; 85610; 85730; 87086; 99283

== ENCOUNTER 2020-10-26 00:13 | Inpatient (IN) | payer MEDICAID ==
[2020-10-26] MEDS ORDERED: ePHEDrine SULFATE 50 MG/1 ML INJ IV PRN (00:58)
[2020-10-26] MEDS ORDERED: PROMETHAZINE 25 MG TAB PO PRN ×2 (00:58→04:49)
[2020-10-26] MEDS ORDERED: LIDOCAINE (2%) 20 MG/1 ML VIAL 20 ML MDV INFILTRATI ONE (00:58)
[2020-10-26] MEDS ORDERED: miSOPROStol 200 MCG TAB PR PRN (00:58)
[2020-10-26] MEDS ORDERED: ONDANSETRON 4 MG/2 ML INJ IV PRN ×2 (00:58→04:49)
[2020-10-26] MEDS ORDERED: LOPERAMIDE 2 MG CAP PO PRN (00:58)
[2020-10-26] MEDS ORDERED: NALOXONE 0.4 MG/1 ML INJ IV PRN (00:58)
[2020-10-26] MEDS ORDERED: OXYTOCIN 10 UNIT/1 ML INJ IM PRN (00:58)
[2020-10-26] MEDS ORDERED: fentaNYL 100 MCG/2 ML INJ IV PRN (00:58)
[2020-10-26] MEDS ORDERED: MINERAL OIL 30 ML ORAL LIQD PO PRN (00:58)
[2020-10-26] MEDS ORDERED: CARBOPROST TROMETHAMINE 250 MCG/1 ML INJ IM PRN (00:58)
[2020-10-26] MEDS ORDERED: METHYLERGONOVINE MALEATE 0.2 MG/ML VIAL IM PRN (00:58)
[2020-10-26] MEDS ORDERED: TERBUTALINE 1 MG/1 ML INJ SUB-Q PRN (00:58)
[2020-10-26] MEDS ORDERED: OXYTOCIN DRIP 30 UNITS/500 ML BAG IV SCH ×3 (01:00→05:00)
[2020-10-26] MEDS ORDERED: ACETAMINOPHEN 500 MG TAB PO PRN ×2 (01:09→05:10)
--- NOTE | 2020-10-26 01:10 | History and Physical Report ---
History of Present Illness Date of examination: 10/26/20 (Contractions) Date of admission: 10/26/2020 Chief complaint: My contractions are getting closer together. History of present illness: Pt presents to labor and delivery triage with c/o contractions that were getting stronger and closer together. EDC Calculations LMP: 10/31/2020 EDC Confirmation: 10/31/2020 Gestational Age: 39.2 wks on admission. Past History : 6 Term Births: 5 Premature Births: 0 Living Children: 5 Para: 5 Mult. Births: 0 Prev : 0 Prev. attempt? 0 Aborta: 0 Elect. Ab: 0 Spont. Ab: 0 Ectopics: 0 # 1 Delivery date: 12/23/2010 Weeks Gestation: 38 labor: no Delivery type: Hours of labor: 10 Delivery location: [place] Sex: Male weight: 8-7 Name: Deshaun # 2 Delivery date: 09/28/2012 Weeks Gestation: 39 labor: no Delivery type: Hours of labor: 6 Anesthesia type: epidural Delivery location: [place] Sex: Male weight: 7-2 Name: Maximiliano # 3 Delivery date: 12/29/2015 Weeks Gestation: 38 Delivery type: Vaginal Hours of labor: <4 Anesthesia type: none Delivery location: [facility] Sex: male weight: 6.63 Name: arnaldo Comments: limited PNC precipitous delivery # 4 Delivery date: 05/30/2017 Weeks Gestation: 40 Delivery type: Vaginal Anesthesia type: IV medication Delivery location: [facility] Sex: male weight: 8.50 Name: yaneli Comments: hemorrhage # 5 Delivery date: 04/2019 Weeks Gestation: term labor: no Delivery type: Anesthesia type: none Delivery location: [facility] Infant Sex: Male weight: 8-0 Name: papi Past Medical History: Reviewed history from 11/02/2015 and no changes required: Negative Past Medical History Past Surgical History: Reviewed history from 11/02/2015 and no changes required: Negative Past Surgical History Past Medical History Abnormal PAP: negative ANTHONY Exposure: negative Infertility: negative Uterine Anomaly: negative Uterine Surgery (not C/S): negative Other Gynecologic Problems: negative Social Hx: unemployed Patient is single Infection History Hx of STD: none HIV Risk Eval: no Hepatitis B Risk Eval: low risk Personal hx. of genital herpes: no Partner hx. of genital herpes: no Rash, Viral, or Febrile illness since last LMP? no Varicella/Chicken Pox Status: Unknown TB Risk: no Genetic History Congenital Heart Defect: Mom: no Dad: no Joshua Disease: Mom: no Dad: no Thalassemia Mom: no Dad: no Neural Tube Defect Mom: no Dad: no Down's Syndrome Mom: no Dad: no Malik-Sachs Mom: no Dad: no Sickle Cell Disease/Trait Mom: no Dad: no Hemophilia Mom: no Dad: no Muscular Dystrophy Mom: no Dad: no Cystic Fibrosis Mom: no Dad: no Candis Chorea Mom: no Dad: no Mental Retardation Mom: no Dad: no Fragile X Mom: no Dad: no Other Genetic/Chromosomal Disorder Mom: no Dad: no Child w/other defect Mom: no Dad: no Enviromental Exposures Xray Exposure: no Medication, drug, or alcohol use since LMP: no Chemical/Other Exposure: no Exposure to Cat Liter: no Hx of Parvovirus (Fifth Disease): no Occupational Exposure to Children: none Current Allergies: No known allergies Past History Past Medical History: no pertinent history Past Surgical History: no surgical history 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 ) Family/Genetic History: none Social history: other (Limited care in this . ) - Obstetrical History Expected Date of Delivery: 10/31/20 Actual Gestation: 39 Week(s) 2 Day(s) : 6 Para: 5 Hx # Term Pregnancies: 5 Number of Pregnancies: 0 Spontaneous Abortions: 0 Induced : 0 Number of Living Children: 5 Medications and Allergies Allergies Allergy/AdvReac Type Severity Reaction Status Date / Time No Known Allergies Allergy Verified 06/01/19 11:10 Home Medications Medication Instructions Recorded Confirmed Last Taken Type Lidocain2.5%/Prilocai2.5% [Emla] 5 gm TP ONCE PRN #1 tube 12/30/15 05/13/19 Unknown Rx Docusate Sodium [Colace] 100 mg PO BID PRN #60 capsule 06/01/17 05/13/19 Unknown Rx Ferrous Sulfate [Feosol 325 MG tab] 325 mg PO BID #60 tablet 06/01/17 05/13/19 Unknown Rx Ibuprofen [Motrin 800 MG tab] 800 mg PO TID PRN #30 tablet 06/01/17 05/13/19 Unknown Rx Ferrous Sulfate [Feosol 325 MG tab] 325 mg PO BID #60 tablet 05/14/19 Unknown Rx Ibuprofen [Motrin 600 MG tab] 600 mg PO Q6H #30 tablet 05/14/19 Unknown Rx Vit-Fe Fumar-FA [ 1 each PO QDAY #30 tablet 05/14/19 Unknown Rx Vitamin] Clindamycin [Clindamycin CAP] 300 mg PO Q8H #30 cap 06/01/19 Unknown Rx Active Meds: Active Medications Acetaminophen (Acetaminophen 325 Mg Tab) 1,000 mg PO Q6H PRN PRN Reason: Pain, Mild (1-3) Carboprost Tromethamine (Carboprost Tromethamine 250 Mcg/1 Ml Inj) 250 mcg IM ONCE PRN PRN Reason: Uterine Bleeding Ephedrine Sulfate (Ephedrine Sulfate 50 Mg/1 Ml Inj) 10 mg IV Q2M PRN PRN Reason: Hypotension Fentanyl (Fentanyl 100 Mcg/2 Ml Inj) 100 mcg IV Q2H PRN PRN Reason: Pain,Severe (7-10) LABOR PAIN Oxytocin/Sodium Chloride (Pitocin/Ns 30 Unit/500ml) 30 units in 500 mls @ 4 mls/hr IV TITR GUERDA; Protocol Lactated Ringer's (Lactated Ringers) 1,000 mls @ 125 mls/hr IV DIRECT GUERDA Oxytocin/Sodium Chloride (Pitocin/Ns 30 Unit/500ml) 30 units in 500 mls @ 40 mls/hr IV TITR GUERDA; Protocol Lidocaine (Lidocaine (2%) 20 Mg/1 Ml Vial 20 Ml Mdv) 20 ml INFILTRATI ONCE ONE Stop: 10/26/20 00:59 Loperamide HCl (Loperamide 2 Mg Cap) 2 mg PO ONCE PRN PRN Reason: give with Hemabate Methylergonovine Maleate (Methylergonovine Maleate 0.2 Mg/Ml Vial) 0.2 mg IM ONCE PRN PRN Reason: Uterine Bleeding Mineral Oil (Mineral Oil 30 Ml Oral Liqd) 30 ml PO QHS PRN PRN Reason: Constipation Misoprostol (Misoprostol 200 Mcg Tab) 800 mcg NC ONCE PRN PRN Reason: Uterine Bleeding Naloxone HCl (Naloxone 0.4 Mg/1 Ml Inj) 0.1 mg IV Q2MIN PRN PRN Reason: Res Rate </= 8 or 02 SAT < 92% Ondansetron HCl (Ondansetron 4 Mg/2 Ml Inj) 4 mg IV Q8H PRN PRN Reason: Nausea And Vomiting Oxytocin (Oxytocin 10 Unit/1 Ml Inj) 10 unit IM ONCE PRN PRN Reason: Uterine Bleeding Promethazine HCl (Promethazine 25 Mg Tab) 25 mg PO Q6H PRN PRN Reason: Nausea And Vomiting Terbutaline Sulfate (Terbutaline 1 Mg/1 Ml Inj) 0.25 mg SUB-Q ONCE PRN PRN Reason: Hyperstimulation/Hypertonicity Review of Systems All systems: negative - Vital Signs Vital signs: Vital Signs Pulse BP 110 H 152/91 10/26/20 00:51 10/26/20 00:51 Temp Pulse Resp BP Pulse Ox 98.4 F 110 H 18 152/91 10/26/20 00:53 10/26/20 00:53 10/26/20 00:53 10/26/20 00:53 - Physical Exam Breasts: Positive: deferred Cardiovascular: Regular rate Lungs: Positive: Normal air movement Abdomen: Positive: normal appearance Genitourinary (Female): Positive: normal external genitalia, normal perenium Vulva: both: normal Vagina: Positive: normal moisture Uterus: Positive: normal size Extremities: Positive: normal - Obstetrical FHR: category 1 Uterine Contraction Monitor Mode: External Cervical Dilatation: 6 (Bag not felt. Pt denies SROM.) Cervical Effacement Percentage: 80 station: 0 Uterine Contraction Pattern: Regular Uterine Tone Measurement Phase: Resting Uterine Contraction Intensity: Moderate Results All other labs normal. GBS NEGATIVE HBsAg Screen Negative Negative *1 RPR Non Reactive Non Reactive *2 Rubella Antibodies, IgG 1.63 index Immune >0.99 *3 Non-immune <0.90 Equivocal 0.90 - 0.99 Immune >0.99 ABO Grouping B *4 Rh Factor Positive *5 Antibody Screen Negative Negative *6 Tests: (2) HIV Ag/Ab with Reflex (441646) HIV Screen 4th Generation wRfx Non Reactive Non Reactive *31 Tests: (4) HCV Ab w/Rflx to Verification (061632) ! HCV Ab <0.1 s/co ratio 0.0-0.9 *33 Tests: (5) Comment: ([id number]) ! Comment: SPRCS *34 Non reactive HCV antibody screen is consistent with no HCV infection, unless recent infection is suspected or other evidence exists to indicate HCV infection. Assessment and Plan A: 30 y.o. @ 39.2 wks in active labor. Cervical exam . - Patient Problems (1) with 39 completed weeks gestation Onset Date: ~10/26/20 Current Visit: Yes Status: Acute Plan to address problem: Admit to labor and delivery. Draw admission labs. Fluid bolus for epidural placement. Anticipate . (2) Insufficient care in third trimester Onset Date: ~10/26/20 Current Visit: Yes Status: Acute Plan to address problem: Case management to be placed to see patient after delivery d/t insufficient care.
[2020-10-26 01:27] LABS: Hematocrit 24.3 % (30.3-42.9); Hemoglobin 8.4 gm/dl (10.1-14.3); Mean Corpuscular HGB Conc 34 % (30-34); Mean Corpuscular Volume 80 fl (79-97); Platelet Count 162 K/mm3 (140-440); Red Blood Count 3.04 M/mm3 (3.65-5.03); Red Cell Distribution Width 14.2 % (13.2-15.2)
[2020-10-26] MEDS: LACTATED RINGERS 1,000 ML IV SCH ×2 (01:38→02:27)
[2020-10-26] MEDS ORDERED: NALOXONE 2 MG/2 ML INJ IV PRN (02:15)
[2020-10-26] MEDS ORDERED: diphenhydrAMINE 50 MG/ML VIAL IV PRN (02:15)
[2020-10-26] MEDS ORDERED: NalbUPHINE 10 MG/1 ML INJ IV PRN (02:15)
--- NOTE | 2020-10-26 02:40 | Anesthesia Consultation ---
Anesthesia Consult and Med Hx Date of service: 10/26/20 - Airway Anesthetic Teeth Evaluation: Good ROM Head & Neck: Adequate Mental/Hyoid Distance: Adequate Mallampati Class: Class I Intubation Access Assessment: Good - Pulmonary Exam CTA: Yes - Cardiac Exam Cardiac Exam: RRR - Pre-Operative Health Status ASA Pre-Surgery Classification: ASA2 Proposed Anesthetic Plan: Epidural - Pulmonary Hx Smoking: No Hx Asthma: No COPD: No Hx Pneumonia: No Hx Sleep Apnea: No - Cardiovascular System Hx Hypertension: No Hx Heart Attack/AMI: No Hx Angina: No - Central Nervous System Hx Seizures: No Hx Psychiatric Problems: No - Gastrointestinal Hx Gastroesophageal Reflux Disease: No - Endocrine Hx Renal Disease: No Hx End Stage Renal Disease: No Hx Insulin Dependent Diabetes: No Hx Non-Insulin Dependent Diabetes: No Hx Hypothyroidism: No Hx Hyperthyroidism: No - Hematic Hx Anemia: Yes (on meds) Hx Sickle Cell Disease: No - Other Systems Hx Alcohol Use: No
--- NOTE | 2020-10-26 02:41 | Progress Note ---
Labor Epidural - Labor Epidural Start Time: 02:25 Stop Time: 02:35 Performed by:: DANIELA SUMNER Procedure: Patient is requesting epidural for labor and pain. H&P, labs were reviewed. Patient IDed, H&P reviewed, all questions and concerns were answered, and consent was signed. Timeout was performed at bedside. Patient in sitting position. Sterile prep and drape was performed. 3ml of 1% lidocaine skin wheal at L[3]- L [4]. 18-gauge Tuohy epidural needle was advanced to loss of resistance with air technique 5cm. Negative CSF negative blood. Epidural catheter advanced to [10] centimeters. [negative] Aspiration [negative] test dose. Sterile dressing applied. Patient tolerated procedure.
[2020-10-26] MEDS: ePHEDrine SULFATE 50 MG/1 ML INJ IV PRN ×2 (02:48→03:01)
[2020-10-26] MEDS ORDERED: fentaNYL-BUPIV 2 MCG/ML-0.125% 200 MCG/100 ML BAG EPIDURAL SCH (03:00)
--- NOTE | 2020-10-26 04:47 | Procedure Note ---
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 ), 3 umbilical vessels Episiotomy: none Delivery laceration: none Anesthesia: epidural Delivery comments: of viable female over intact perineum. Nuchal cord X1 easily reduced. Infant to mother's abdomen for skin to skin. Cord cut and clamped after cessation of pulse. handed to BONNY team for evaluation. Spontaneous delivery of placenta, intact, 3 vessels noted. Brisk bleeding noted after delivery of placenta with some clots expressed. Pt given Cytotec 800 mcg per rectum, Pitocin, and Methergine 0.2mg IM. Fundus firm, minimal bleedi ng noted after interventions. EBL 500ml. Apgars 8,9. Infant weight 7-4. Sponges and instruments counted X2 and correct X2. and mother left in stable condition in the care of RN. - A at 1 minute: 8 at 5 minutes: 9 Infant Gender: Female
[2020-10-26] MEDS ORDERED: LANOLIN/ZINC/DIMETHICONE (LANSINOH) 7 GM TP PRN ×2 (04:49)
[2020-10-26] MEDS ORDERED: MAGNESIUM HYDROXIDE (MOM) ORAL LIQD UDC PO PRN (04:49)
[2020-10-26] MEDS ORDERED: diphenhydrAMINE 25 MG CAP PO PRN (04:49)
[2020-10-26] MEDS ORDERED: WITCH HAZEL/ GLYCERIN PAD TP PRN (04:49)
[2020-10-26] MEDS ORDERED: BENZOCAINE/MENTHOL 20/0.5% TOP SPRAY 56 GM TP PRN (04:49)
[2020-10-26] MEDS ORDERED: miSOPROStol 100 MCG TAB PR PRN (04:49)
[2020-10-26] MEDS: FERROUS SULFATE 325 MG TAB PO SCH ×2 (10:00→21:41)
[2020-10-26] MEDS: METHYLERGONOVINE 0.2 MG TABLET PO SCH ×3 (10:00→21:41)
[2020-10-26] MEDS: PRENATAL VIT27-FE FUMARATE-FOLIC ACID VIT TAB PO SCH (10:00)
[2020-10-26] MEDS: DOCUSATE SODIUM 100 MG CAP PO SCH ×2 (10:00→21:41)
[2020-10-26 10:56] LABS: Amphetamine Screen,Urine Negative; Benzodiazepines Screen,Urine Negative; Cannabinoid Screen,Urine Negative; Cocaine Screen,Urine Negative; Methadone Screen,Urine Negative; Opiate Screen,Urine Negative
[2020-10-26] MEDS: IBUPROFEN 800 MG TAB PO SCH ×2 (11:46→18:08)
--- NOTE | 2020-10-26 13:42 | Post Anesthesia Evaluation ---
- Post Anesthesia Evaluation Patient Participated: Yes Airway Patent: Yes Stable Respiratory Function: Yes Nausea/Vomiting: No Temp > 96.8F: Yes Pain Manageable: Yes Adequeate Hydration: Yes Anesthesia Complications: No Block Receding Appropriately: Yes Patient on Ventilator: No
[2020-10-26 18:17] LABS: Hematocrit 24.3 % (30.3-42.9); Hemoglobin 8.2 gm/dl (10.1-14.3)
[2020-10-27] MEDS: IBUPROFEN 800 MG TAB PO SCH ×3 (00:21→12:39)
[2020-10-27] MEDS: METHYLERGONOVINE 0.2 MG TABLET PO SCH (04:19)
[2020-10-27] MEDS ORDERED: DIPHtheria,PERTUSSIS(ACELL),TETANUS VACCINE/PF 0.5 ML VIAL IM ONE (06:00)
--- NOTE | 2020-10-27 08:20 | Discharge Summary ---
Providers - Providers Date of Admission: 10/26/20 00:58 Date of discharge: 10/27/20 (Pt desires to go home.) Attending physician: JAZMYN SHEN 10/26/20 04:52 Consult to Case Management [CONS] Routine Services Needed at Discharge: Engraver Letter Notified:: case management Comment:: Limited care during this Primary care physician: JAZMYN SHEN Hospitalization Reason for admission: active labor Delivery: Episiotomy: none Laceration: none Other procedures: none complications: other (PPH after delivery.) Discharge diagnosis: IUP at term delivered baby: female Hospital course: S: Pt doing well. Ambulating, voiding, and passing flatus okay. BC: BTL. O: VSS. Adequate I&O's. H/H 8.2/24.3, asymptomatic anemia from and delivery. Fundus firm, minimal bleeding noted. A: 30 y.o. s/p @ term, in good condition and can be discharged home. P: Discharge home with instructions. To schedule a visit in the office in 4 weeks. Condition at discharge: Good Disposition: [id number] TO HOME OR SELFCARE Plan - Discharge Medications Prescriptions: Docusate Sodium [Colace] 100 mg PO BID PRN #60 capsule PRN Reason: Constipation Ferrous Sulfate [Feosol 325 MG tab] 325 mg PO QDAY #30 tablet Ibuprofen [Motrin] 800 mg PO Q8HR PRN #30 tablet PRN Reason: Pain, Moderate (4-6) - Provider Discharge Summary Activity: routine, no sex for 6 weeks, no heavy lifting 4 weeks, no strenuous exercise Diet: routine Instructions: routine Additional instructions: [] Smoking cessation referral if applicable(refer to patient education folder for contact #) [] Refer to [facility] Booklet Call your doctor immediately for: * Fever > 100.5 * Heavy vaginal bleeding ( >1 pad per hour) * Severe persistent headache * Shortness of breath * Reddened, hot, painful area to leg or breast * Drainage or odor from incision. * Keep incision clean and dry at all times and follow doctor's instructions regarding bathing/showering Congratulations on your baby girl! Please schedule your visit in the office in 4 weeks. If you have any questions or concerns, please do not hesitate to call the office at [phone]. - Follow up plan Follow up: JAZMYN SHEN MD [Primary Care Provider] - 7 Days
[2020-10-27] MEDS: DOCUSATE SODIUM 100 MG CAP PO SCH (10:21)
[2020-10-27] MEDS: PRENATAL VIT27-FE FUMARATE-FOLIC ACID VIT TAB PO SCH (10:21)
[2020-10-27] MEDS: FERROUS SULFATE 325 MG TAB PO SCH (10:21)
[2020-10-27 13:32] VITALS: BP 107/68
== END 2020-10-27 14:10 | disposition home or self-care (01) | DRG 775 ==
LOC: TRG 00:13 → APU 00:15 → TRG 00:58 → LD 00:58 → OB 06:55
PROVIDERS: ADMIT Obstetrics & Gynecology; ATTEND Obstetrics & Gynecology
PROC: 10E0XZZ Delivery of Products of Conception, External Approach (ICD-10-PCS; principal; 2020-10-26)
PROC: 3E0R3BZ Introduction of Anesthetic Agent into Spinal Canal, Percutaneous Approach (ICD-10-PCS; 2020-10-26)
PROC: 00HU33Z Insertion of Infusion Device into Spinal Canal, Percutaneous Approach (ICD-10-PCS; 2020-10-26)
PROC: 3E0234Z Introduction of Serum, Toxoid and Vaccine into Muscle, Percutaneous Approach (ICD-10-PCS; 2020-10-27)
DX: O62.0 Primary inadequate contractions (principal); Z3A.39 39 weeks gestation of pregnancy; Z37.0 Single live birth; Z79.899 Other long term (current) drug therapy; O99.02 Anemia complicating childbirth; Z20.822 Contact with and (suspected) exposure to COVID-19
CPT/HCPCS: 36415; 59025; 80307; 85014; 85018; 85027; 86592; 86850; 86900; 86901; G0378; J2210; J2590; J7120; U0003